=== PATIENT | female | born 1940 | race African-American/Black ===

== ENCOUNTER 2017-02-08 06:19 | Day surgery (SDC) | payer OTHER, BC ==
[2017-02-04 10:59] VITALS: BMI 31.0
[~2017-02-08 06:19] MED LIST: CYCLOPENTOLATE HCL 1% OPHTH SOLN 2 ML BOTTLE OP SCH; MOXIFLOXACIN HCL 0.5% OPHTHALMIC 3 ML BOTTLE OP SCH; PHENYLEPHRINE 2.5% OPHTH SOLN 15 ML BOTTLE OP SCH; TROPICAMIDE 1% OPHTH SOLN 15 ML BOTTLE OP SCH
[2017-02-08] MEDS ORDERED: TOBRAMYCIN/DEXAMETHASONE OPHTH. OINTMENT 1 TUBE ONE (07:31)
[2017-02-08] MEDS ORDERED: EPINEPHrine/PF 1 MG/1 ML (1:1,000) AMPULE ONE (07:31)
[2017-02-08] MEDS ORDERED: BUPIVACAINE HCL/PF 0.75% 10 ML VIAL ONE (07:32)
[2017-02-08] MEDS ORDERED: LIDOCAINE HCL/PF 1% SDV 5ML VIAL ONE (07:32)
[2017-02-08] MEDS ORDERED: LIDOCAINE HCL/PF 2% SDV 5ML VIAL ONE (07:32)
[2017-02-08] MEDS ORDERED: POVIDONE-IODINE 5% OPHTHALMIC PREP 30 ML SOLUTION ONE (07:33)
== END 2017-02-08 06:45 | disposition home or self-care (01) ==
LOC: JASU-SURG 06:19
PROVIDERS: ATTEND Ophthalmology
PROC: 085K3ZZ Destruction of Left Lens, Percutaneous Approach (ICD-10-PCS; principal; 2017-02-08)
DX: H26.9 Unspecified cataract (principal); Z53.8 Procedure and treatment not carried out for other reasons
CPT/HCPCS: 36415; 70450-TC; 80053; 85025; 85651; 86140; 99282-25

== ENCOUNTER 2017-02-22 06:07 | Day surgery (SDC) | payer OTHER, BC ==
[2017-02-18 14:07] VITALS: BMI 31.0
[2017-02-22 06:34] VITALS: TEMP 98
[2017-02-22] MEDS: MOXIFLOXACIN HCL 0.5% OPHTHALMIC 3 ML BOTTLE OP SCH ×3 (06:45→07:04)
[2017-02-22] MEDS: CYCLOPENTOLATE HCL 1% OPHTH SOLN 2 ML BOTTLE OP SCH ×3 (06:45→07:04)
[2017-02-22] MEDS: PHENYLEPHRINE 2.5% OPHTH SOLN 15 ML BOTTLE OP SCH ×3 (06:45→07:05)
[2017-02-22] MEDS: TROPICAMIDE 1% OPHTH SOLN 15 ML BOTTLE OP SCH ×3 (06:45→07:05)
[2017-02-22] MEDS ORDERED: EPINEPHrine/PF 1 MG/1 ML (1:1,000) AMPULE ONE (07:20)
[2017-02-22] MEDS ORDERED: BUPIVACAINE HCL/PF 0.75% 10 ML VIAL ONE (07:21)
[2017-02-22] MEDS ORDERED: LIDOCAINE HCL/PF 1% SDV 5ML VIAL ONE (07:21)
[2017-02-22] MEDS ORDERED: TETRACAINE 0.5% OPHTH SOLN 2 ML BOTTLE ONE (07:21)
[2017-02-22] MEDS ORDERED: LIDOCAINE HCL/PF 2% SDV 5ML VIAL ONE (07:21)
[2017-02-22] MEDS ORDERED: POVIDONE-IODINE 5% OPHTHALMIC PREP 30 ML SOLUTION ONE (07:21)
[2017-02-22] MEDS ORDERED: MIDAZOLAM HCL 2 MG/2 ML SINGLE DOSE VIAL ONE (07:46)
[2017-02-22] MEDS ORDERED: SUCCINYLCHOLINE CHLORIDE 200 MG/10 ML VIAL ONE (07:46)
[2017-02-22] MEDS ORDERED: PROPOFOL 20 ML ONE (07:50)
--- NOTE | 2017-02-22 07:59 | HP ---
History & Physical Update - History History: No Change - Physical Physical: No Change - Assessment Assessment: No Change - Plan Plan: No Change
[2017-02-22] MEDS: TOBRAMYCIN/DEXAMETHASONE OPHTH. OINTMENT 1 TUBE ONE ×2 (08:44)
[2017-02-22 11:39] VITALS: BP 137/70; PULSE 58
--- NOTE | 2017-02-23 08:42 | OP ---
DATE OF OPERATION: 02/22/2017 SURGEON: Brad Kuo MD PREOPERATIVE DIAGNOSIS: Cataract, left eye. OPERATION: Phacoemulsification and intraocular lens implantation, left eye. POSTOPERATIVE DIAGNOSIS: Cataract, left eye. ANESTHESIA: Local with intravenous sedation. COMPLICATIONS: None. BLOOD LOSS: None. SPECIMEN: None. BRIEF HISTORY: The patient is a 76-year-old woman with a past medical history of diabetes who presented with decreased vision in the left eye down to 20/70 due to 1-2+ nuclear sclerotic lens with peripheral cortical changes and punctate opacities. After the risks, benefits, and alternatives to cataract surgery were discussed with the patient, she consented to surgery for the left eye. DESCRIPTION OF PROCEDURE: The patient was brought to the operating room and administered retrobulbar block after receiving intravenous sedation. She was then prepped and draped in the usual sterile fashion. Then, an eyelid speculum was inserted in the left eye, a paracentesis was made, and the anterior chamber was inflated with nonpreserved lidocaine. This was followed by injection of Viscoat. A groove was made in the superotemporal clear cornea which was tunneled forward with a crescent blade. The anterior chamber was entered with a 2.75 keratome. The cystotome was used to make an incision at the center of the capsule, and a continuous curvilinear capsulorrhexis was created. The lens was hydrodissected until it was found to rotate freely within the capsular bag. Phacoemulsification was then used to remove the lens in its entirety. Irrigation and aspiration were used to remove residual cortical material. The anterior chamber and capsular bag were reinflated with Provisc, and a 15.5 diopter [id number] AcrySof intraocular lens was injected into the capsular bag using the [place] injector. The lens was dialed into place using the SinMetailey hook. Irrigation and aspiration were used to remove residual viscoelastic. The wound was stromally hydrated until it was found to be watertight and the eye was in an appropriate pressure. The eyelid speculum was removed from the eye, and TobraDex ointment and a patch and shield were placed over the left eye. The patient was transferred to the recovery room in stable condition and will follow up tomorrow. Mundo COHEN/[id number]
== END 2017-02-22 10:30 | disposition home or self-care (01) ==
LOC: JASU-SURG 06:07
PROVIDERS: ATTEND Ophthalmology
PROC: 08RK3JZ Replacement of Left Lens with Synthetic Substitute, Percutaneous Approach (ICD-10-PCS; principal; 2017-02-22 08:00)
DX: H25.12 Age-related nuclear cataract, left eye (principal)

== ENCOUNTER 2017-11-27 13:32 | Emergency (ER) | payer OTHER, BC ==
[2017-11-27 13:42] VITALS: BMI 29.7
--- NOTE | 2017-11-27 13:46 | PDOC ---
History of Present Illness - General Chief Complaint: Chest Pain Stated Complaint: CHEST PAIN Time Seen by Provider: 11/27/17 13:46 - History of Present Illness Initial Comments: 11/27/17 14:00 Ms. Rizvi is a 77 yo female w/ pmh of HTN, HLD, and DM who presents for evaluation of 2 day history of left sided chest pain radiating to her left shoulder. Patient reports symptoms started yesterday and she initially believed she had pulled a muscle and hoped it would get better. Symptoms continued while she was in [place] and she elected to come in. The patient denies shortness of breath, headache and dizziness. Denies fever, chills, nausea, vomit, diarrhea and constipation. Denies dysuria, frequency, urgency and hematuria. Allergies: NKDA Past History - Past Medical History Allergies/Adverse Reactions: Allergies Allergy/AdvReac Type Severity Reaction Status Date / Time No Known Allergies Allergy Verified 11/27/17 13:42 Home Medications: Ambulatory Orders Metformin HCl [Metformin HCl ER] 1,000 mg PO DAILY 08/20/13 Nadolol [Corgard] 20 mg PO DAILY 08/20/13 Quinapril HCl [Accupril -] 40 mg PO DAILY 08/20/13 Amlodipine Besylate 10 mg PO DAILY 02/04/17 Famotidine [Pepcid -] 40 mg PO DAILY 02/08/17 Pravastatin Sodium 10 mg PO DAILY 02/08/17 Aspirin [ASA -] 81 mg PO DAILY 11/27/17 Asthma: (SINUS PROBLEM) COPD: No Diabetes: Yes GI Disorders: Yes (ACID REFLUX) HTN: Yes Hypercholesterolemia: Yes - Immunization History Immunization Up to Date: Yes - Suicide/Smoking/Psychosocial Hx Smoking History: Never smoked Have you smoked in the past 12 months: No Hx Alcohol Use: No Drug/Substance Use Hx: No Substance Use Type: None Review of Systems - Review of Systems Comments:: 11/27/17 14:03 GENERAL/CONSTITUTIONAL: No fever or chills. No weakness. HEAD, EYES, EARS, NOSE AND THROAT: No change in vision. No ear pain or discharge. No sore throat. CARDIOVASCULAR: +Chest pain as described. No shortness of breath RESPIRATORY: No cough, wheezing, or hemoptysis. GASTROINTESTINAL: No nausea, vomiting, diarrhea or constipation. GENITOURINARY: No dysuria, frequency, or change in urination. MUSCULOSKELETAL: No joint or muscle swelling or pain. No neck or back pain. SKIN: No rash NEUROLOGIC: No headache, vertigo, loss of consciousness, or change in strength/ sensation. ENDOCRINE: No increased thirst. No abnormal weight change HEMATOLOGIC/LYMPHATIC: No anemia, easy bleeding, or history of blood clots. ALLERGIC/IMMUNOLOGIC: No hives or skin allergy. *Physical Exam - Vital Signs Last Vital Signs Temp Pulse Resp BP Pulse Ox 98.6 F 58 L 18 179/72 99 11/27/17 13:37 11/27/17 13:37 11/27/17 13:37 11/27/17 13:37 11/27/17 13:37 - Physical Exam Comments: 11/27/17 14:03 GENERAL: Awake, alert, and fully oriented, in no acute distress HEAD: No signs of trauma, normocephalic, atraumatic EYES: PERRLA, EOMI, sclera anicteric, conjunctiva clear ENT: Auricles normal inspection, hearing grossly normal, nares patent, oropharynx clear without exudates. Moist mucosa NECK: Normal ROM, supple, no lymphadenopathy, JVD, or masses LUNGS: +Reproducible chest pain w/ palpation. No distress, speaks full sentences , clear to auscultation bilaterally HEART: Regular rate and rhythm, normal S1 and S2, no murmurs, rubs or gallops, peripheral pulses normal and equal bilaterally. ABDOMEN: Soft, nontender, normoactive bowel sounds. No guarding, no rebound. No masses EXTREMITIES: Normal inspection, Normal range of motion, no edema. No clubbing or cyanosis. NEUROLOGICAL: Cranial nerves II through XII grossly intact. Normal speech, normal gait, no focal sensorimotor deficits SKIN: Warm, Dry, normal turgor, no rashes or lesions noted. ED Treatment Course - LABORATORY CBC & Chemistry Diagram: 11/27/17 14:09 11/27/17 14:09 Medical Decision Making - Medical Decision Making 11/27/17 18:05 Ms. Rizvi is a 77 yo female w/ pmh as described who presents for evaluation of reproducible chest pain. Patient reporting improvement of chest pain w/ toradol. Labs grossly wnl w/ 2 normal troponins as below. EKG mildly patricia, regular rhythm, normal access, normal interval, mild t wave flattening in V5/ V6. Grossly unconcerning EKG. Discharging patient w/ instructions to f/u w/ PCP for further evaluation. No concern for acute process at this time. Laboratory Results - last 24 hr 11/27/17 11/27/17 11/27/17 14:09 14:09 14:09 WBC 7.4 RBC 4.59 Hgb 13.1 Hct 39.1 MCV 85.2 MCH 28.6 MCHC 33.6 RDW 14.6 Plt Count 171 MPV 9.3 Absolute Neuts (auto) 4.2 Neutrophils % 56.8 Lymphocytes % 33.0 Monocytes % 7.6 Eosinophils % 2.1 Basophils % 0.5 Nucleated RBC % 0 Sodium 147 H Potassium 3.8 Chloride 109 H Carbon Dioxide 26 Anion Gap 12 BUN 20 H Creatinine 0.9 Creat Clearance w eGFR > 60 Random Glucose 93 Calcium 9.2 Total Bilirubin 0.7 AST 29 ALT 37 Alkaline Phosphatase 67 Creatine Kinase Troponin I Total Protein 8.0 Albumin 3.8 Urine Color Ltyellow Urine Appearance Clear Urine pH 6.0 Ur Specific [place] 1.011 Urine Protein Negative Urine Glucose (UA) Negative Urine Ketones Negative Urine Blood Negative Urine Nitrite Negative Urine Bilirubin Negative Urine Urobilinogen Negative Ur Leukocyte Esterase Negative 11/27/17 11/27/17 14:10 16:55 WBC RBC Hgb Hct MCV MCH MCHC RDW Plt Count MPV Absolute Neuts (auto) Neutrophils % Lymphocytes % Monocytes % Eosinophils % Basophils % Nucleated RBC % Sodium Potassium Chloride Carbon Dioxide Anion Gap BUN Creatinine Creat Clearance w eGFR Random Glucose Calcium Total Bilirubin AST ALT Alkaline Phosphatase Creatine Kinase 147 Troponin I < 0.02 < 0.02 Total Protein Albumin Urine Color Urine Appearance Urine pH Ur Specific Mayer Urine Protein Urine Glucose (UA) Urine Ketones Urine Blood Urine Nitrite Urine Bilirubin Urine Urobilinogen Ur Leukocyte Esterase *DC/Admit/Observation/Transfer Diagnosis at time of Disposition: Chest pain Qualifiers: Chest pain type: unspecified Qualified Code(s): R07.9 - Chest pain, unspecified - Discharge Dispostion Disposition: HOME - Referrals Referrals: Guillermo Zee MD [Primary Care Provider] - - Patient Instructions Printed Discharge Instructions: DI for Atypical Chest Pain Additional Instructions: You were evaluated today in the ER for your chest pain. No concerning findings were found at this time. Please follow-up with primary care provider in 1-2 days for further evaluation. You may take over the counter motrin or tylenol for your pain. Return to ER if any fever, chills, increased chest pain, or other concerning symptoms. - Post Discharge Activity
[2017-11-27] MEDS ORDERED: ASPIRIN 81 MG CHEWABLE TABLETS PO ONE (14:00)
--- NOTE | 2017-11-27 14:18 | PDOC ---
Attending Attestation - Resident Resident Name: Darrell Santiago - ED Attending Attestation I have performed the following: I have examined & evaluated the patient, The case was reviewed & discussed with the resident, I agree w/resident's findings & plan, Exceptions are as noted - HPI HPI: 11/27/17 14:24 77-year-old female with past medical history of hypertension, diabetes, hyperlipidemia presents with chest pain. Patient reported approximately 1 day ago she reported reproducible left sided chest pain worse with movements. Denies shortness of breath or dyspnea on exertion. States the pain made her feel generally weak stated weight up to her left shoulder. She thought that this may have been muscle skeletal and try to avoid come to the doctor's. However, at the insistence of her family members came to the ER. She does not recall her last stress test or echocardiogram. - Physicial Exam PE: 11/27/17 14:27 GENERAL: Awake, alert, and fully oriented, in no acute distress HEAD: No signs of trauma EYES: EOMI, sclera anicteric, conjunctiva clear ENT: Auricles normal inspection, hearing grossly normal, nares patent, Moist mucosa NECK: Normal ROM, supple LUNGS: Breath sounds equal, clear to auscultation bilaterally. No wheezes, and no crackles HEART: Regular rate and rhythm, normal S1 and S2, no murmurs, rubs or gallops. Reproducible left sided chest pain and with left arm movement. ABDOMEN: Soft, nontender,. No guarding, no rebound. No masses EXTREMITIES: Normal range of motion, no edema. No clubbing or cyanosis. No cords, erythema, or tenderness NEUROLOGICAL: Cranial nerves II through XII grossly intact. Normal speech, SKIN: Warm, Dry, normal turgor, no rashes or lesions noted. - Medical Decision Making 11/27/17 14:27 Vital Signs Temp Pulse Resp BP Pulse Ox 98.6 F 58 L 18 179/72 99 11/27/17 13:37 11/27/17 13:37 11/27/17 13:37 11/27/17 13:37 11/27/17 13:37 The patient's chest pain is atypical and I suspect is likely muscle skeletal. However, given her risk factors, we'll obtain 2 sets of troponins. If the troponins are negative the patient reports feeling better with NSAIDs, the patient be discharged home with primary care physician follow-up. 11/27/17 15:01 Chest xray reviewed. No acute findings. 11/27/17 15:23 CBC, BMP 11/27/17 14:09 11/27/17 14:09 CMP Sodium 147 mmol/L (136-145) H 11/27/17 14:09 Potassium 3.8 mmol/L (3.5-5.1) 11/27/17 14:09 Chloride 109 mmol/L (98-107) H 11/27/17 14:09 Carbon Dioxide 26 mmol/L (21-32) 11/27/17 14:09 Anion Gap 12 MMOL/L (8-16) 11/27/17 14:09 BUN 20 mg/dL (7-18) H 11/27/17 14:09 Creatinine 0.9 mg/dL (0.55-1.3) 11/27/17 14:09 Creat Clearance w eGFR > 60 (>60) 11/27/17 14:09 Random Glucose 93 mg/dL (74-106) 11/27/17 14:09 Calcium 9.2 mg/dL (8.5-10.1) 11/27/17 14:09 Total Bilirubin 0.7 mg/dL (0.2-1.0) 11/27/17 14:09 AST 29 U/L (15-37) 11/27/17 14:09 ALT 37 U/L (13-61) 11/27/17 14:09 Alkaline Phosphatase 67 U/L (45-117) 11/27/17 14:09 Creatine Kinase 147 IU/L (26-192) 11/27/17 14:10 Troponin I < 0.02 ng/ml (0.00-0.05) 11/27/17 14:10 Total Protein 8.0 g/dl (6.4-8.2) 11/27/17 14:09 Albumin 3.8 g/dl (3.4-5.0) 11/27/17 14:09 Urine Test Results Urine Color Ltyellow 11/27/17 14:09 Urine Appearance Clear 11/27/17 14:09 Urine pH 6.0 (5.0-8.0) 11/27/17 14:09 Ur Specific [place] 1.011 (1.001-1.035) 11/27/17 14:09 Urine Protein Negative (NEGATIVE) 11/27/17 14:09 Urine Glucose (UA) Negative (NEGATIVE) 11/27/17 14:09 Urine Ketones Negative (NEGATIVE) 11/27/17 14:09 Urine Blood Negative (NEGATIVE) 11/27/17 14:09 Urine Nitrite Negative (NEGATIVE) 11/27/17 14:09 Urine Bilirubin Negative (<2.0 mg/dL) 11/27/17 14:09 Ur Leukocyte Esterase Negative (NEGATIVE) 11/27/17 14:09 Initial trop negative. Will obtain a 2nd trop. If the 2nd trop is negative, the patient can go home if she feels better. Heart Score/ECG Review #1 ECG reviewed & interpreted by me at: 13:55 11/27/17 14:17 NSR 50, +LVH, T wave flat V5-V6, no std/del, QTC 377 msec
[2017-11-27 14:22] LABS: BASO % 0.5 % (0-2.0); EOS % 2.1 % (0-4.5); HEMATOCRIT 39.1 % (32.4-45.2); HEMOGLOBIN 13.1 GM/dL (10.7-15.3); MCH 28.6 pg (25.7-33.7); MCHC 33.6 g/dl (32.0-36.0); MEAN CELL VOLUME 85.2 fl (80-96); MEAN PLT VOLUME 9.3 fl (7.5-11.1); MONO % 7.6 % (3.8-10.2); NEUT % 56.8 % (42.8-82.8); PLATELET COUNT 171 K/MM3 (134-434); RBC 4.59 M/mm3 (3.60-5.2); RDW 14.6 % (11.6-15.6); WHITE BLOOD COUNT 7.4 K/mm3 (4.0-10.0)
[2017-11-27] MEDS ORDERED: KETOROLAC TROMETHAMINE 30 MG/1 ML VIAL ONE (14:24)
[2017-11-27 14:25] LABS: URINE APPEARANCE CLEAR; URINE BILIRUBIN NEGATIVE (<2.0 mg/dL); URINE COLOR LTYELLOW; URINE GLUCOSE (UA) NEGATIVE (NEGATIVE); URINE KETONE NEGATIVE (NEGATIVE); URINE LEUK ESTERASE NEGATIVE (NEGATIVE); URINE NITRITE NEGATIVE (NEGATIVE); URINE PROTEIN NEGATIVE (NEGATIVE); URINE UROBILINOGEN NEGATIVE mg/dL (0.2-1.0)
[2017-11-27] MEDS ORDERED: KETOROLAC TROMETHAMINE 30 MG/1 ML VIAL IVPUSH ONE (14:26)
[2017-11-27] MEDS ORDERED: SODIUM CHLORIDE 1,000 ML IV STA (14:26)
[2017-11-27] MEDS ORDERED: ASPIRIN 81 MG CHEWABLE TABLETS ONE (14:45)
[2017-11-27 15:02] LABS: ALBUMIN 3.8 g/dl (3.4-5.0); ANION GAP 12 MMOL/L (8-16); BLOOD UREA NITROGEN 20 mg/dL (7-18); CALCIUM 9.2 mg/dL (8.5-10.1); CHLORIDE 109 mmol/L (98-107); CO2 26 mmol/L (21-32); GLUCOSE,RANDOM 93 mg/dL (74-106); POTASSIUM 3.8 mmol/L (3.5-5.1); SODIUM 147 mmol/L (136-145)
[2017-11-27 15:07] LABS: ALK PHOS 67 U/L (45-117); BILIRUBIN,TOTAL 0.7 mg/dL (0.2-1.0); CREATININE 0.9 mg/dL (0.55-1.3); SGOT/AST 29 U/L (15-37); SGPT/ALT 37 U/L (13-61)
[2017-11-27] MEDS ORDERED: amLODIPine BESYLATE 10 MG TABLET (FP) PO ONE (16:10)
[2017-11-27] MEDS ORDERED: QUINAPRIL HCL 40 MG TABLET (FP) PO ONE (16:10)
[2017-11-27] MEDS ORDERED: amLODIPine BESYLATE 5 MG TABLET (FP) ONE (16:13)
[2017-11-27] MEDS ORDERED: QUINAPRIL HCL 10 MG TABLET (FP) ONE (16:14)
[2017-11-27 17:02] VITALS: PULSE 59
[2017-11-27 18:27] VITALS: BP 155/75; TEMP 97.9
--- NOTE | 2017-11-27 21:09 | EKG ---
Test Reason : Blood Pressure : / mmHG Vent. Rate : 050 BPM Atrial Rate : 050 BPM P-R Int : 182 ms QRS Dur : 096 ms QT Int : 414 ms P-R-T Axes : 040 -02 045 degrees QTc Int : 377 ms SINUS BRADYCARDIA WITH SINUS ARRHYTHMIA VOLTAGE CRITERIA FOR LEFT VENTRICULAR HYPERTROPHY NONSPECIFIC T WAVE ABNORMALITY ABNORMAL ECG WHEN COMPARED WITH ECG OF 20-AUG-2013 22:45, NO SIGNIFICANT CHANGE WAS FOUND Confirmed by PIPER MARTINEZ MD ([id number]) on 11/27/2017 9:09:18 PM Referred By: Confirmed By:PIPER MARTINEZ MD
[2017-11-28] MEDS ORDERED: NADOLOL 20 MG TABLET (FP) PO ONE (16:11)
== END 2017-11-27 18:27 | disposition home or self-care (01) ==
LOC: JER 13:32
PROC: 3E0333Z Introduction of Anti-inflammatory into Peripheral Vein, Percutaneous Approach (ICD-10-PCS; principal; 2017-11-27)
PROC: 3E033GC Introduction of Other Therapeutic Substance into Peripheral Vein, Percutaneous Approach (ICD-10-PCS; 2017-11-27)
DX: R07.9 Chest pain, unspecified (principal)
CPT/HCPCS: 36415; 71045-TC-FY; 80053; 81003; 82550; 84484; 85025; 87086; 93005; 93010; 96361; 96374; 99285-25; J7030

== ENCOUNTER 2019-06-11 19:33 | Emergency (ER) | payer OTHER, BC ==
[2019-06-11] MEDS ORDERED: ACETAMINOPHEN 325 MG TABLET (FP) PO ONE (20:13)
--- NOTE | 2019-06-11 20:14 | PDOC ---
Rapid Medical Evaluation Chief Complaint: Cold Symptoms Time Seen by Provider: 06/11/19 20:05 Medical Evaluation: Allergies Allergy/AdvReac Type Severity Reaction Status Date / Time No Known Allergies Allergy Verified 11/27/17 13:42 06/11/19 20:05 79 year old c/o hypertension, diabetes, hypercholesteremia, seasonal allergies c/o cough worsening for the last 10 days. patient was treated for a sinus infection. s/p z-pack. patient is c/o headache PE: patient alert ox3. breath sounds clear + nasal congestion A; cough; suspected COvid P: chest xray tylenol 06/12/19 05:01 Discharge Disposition - Diagnosis Suspected 2019 novel coronavirus infection, Cough - Discharge Dispostion Disposition: HOME - Prescriptions Prescriptions: Fluticasone Prop 0.05% Nasal [Flonase -] 1 - 2 spray NS BID #1 spray.pump Benzonatate [Tessalon Pearls -] 100 mg PO TID PRN #21 capsule PRN Reason: Cough - Referrals - Patient Instructions Printed Discharge Instructions: [facility]-Coronavirus Instructions - Post Discharge Activity
[2019-06-11 20:16] VITALS: BP 168/63; PULSE 66; TEMP 97.1
== END 2019-06-11 20:43 | disposition home or self-care (01) ==
LOC: JER 19:33
DX: R05 Cough (principal)
CPT/HCPCS: 71045-TC-FY; 99284-25

== ENCOUNTER 2020-12-05 15:02 | Emergency (ER) | payer OTHER, BC ==
[2020-12-05 15:24] VITALS: BP 175/75; PULSE 46; TEMP 98.5; BMI 24.7
[2020-12-05] MEDS ORDERED: DIPHTH,PERTUSS(ACELL),TET 0.5 ML DISP.SYRIN IM ONE ×2 (15:48→15:49)
== END 2020-12-05 16:46 | disposition home or self-care (01) ==
LOC: JERFT 15:02
PROC: 0HQGXZZ Repair Left Hand Skin, External Approach (ICD-10-PCS; principal; 2020-12-05)
PROC: 3E0234Z Introduction of Serum, Toxoid and Vaccine into Muscle, Percutaneous Approach (ICD-10-PCS; 2020-12-05)
DX: S61.012A Laceration without foreign body of left thumb without damage to nail, initial encounter (principal); W26.0XXA Contact with knife, initial encounter; Y93.G3 Activity, cooking and baking
CPT/HCPCS: 12001-25; 90471; 90715; 99284-25

== ENCOUNTER 2022-01-11 14:55 | Emergency (ER) | payer OTHER, BC ==
[2022-01-11 15:04] VITALS: TEMP 97.8; BMI 22.8
[2022-01-11 18:23] LABS: URINE APPEARANCE CLEAR; URINE BILIRUBIN NEGATIVE (NEGATIVE); URINE COLOR YELLOW; URINE GLUCOSE (UA) NEGATIVE (NEGATIVE); URINE KETONE NEGATIVE (NEGATIVE); URINE LEUK ESTERASE NEGATIVE (NEGATIVE); URINE NITRITE NEGATIVE (NEGATIVE); URINE PROTEIN NEGATIVE (NEGATIVE)
[2022-01-11 19:11] LABS: BASO % 0.6 % (0-2.0); EOS % 2.2 % (0-4.5); HEMATOCRIT 35.2 % (32.4-45.2); HEMOGLOBIN 11.8 GM/dL (10.7-15.3); LYMPH % 30.5 % (8-40); MCH 29.5 pg (25.7-33.7); MCHC 33.6 g/dl (32.0-36.0); MEAN CELL VOLUME 87.8 fl (80-96); MEAN PLT VOLUME 9.7 fl (7.5-11.1); MONO % 7.5 % (3.8-10.2); NEUT % 59.2 % (42.8-82.8); PLATELET COUNT 150 10^3/uL (134-434); RBC 4.01 M/mm3 (3.60-5.2); WHITE BLOOD COUNT 6.2 K/mm3 (4.0-10.0)
[2022-01-11 19:28] LABS: CALCIUM 9.8 mg/dL (8.5-10.1)
[2022-01-11 19:29] LABS: ALBUMIN 3.6 g/dl (3.4-5.0); BLOOD UREA NITROGEN 22.6 mg/dL (7-18)
[2022-01-11 19:32] LABS: CREATININE 0.8 mg/dL (0.55-1.3)
[2022-01-11 19:33] LABS: BILIRUBIN,TOTAL 0.5 mg/dL (0.2-1); TOT PROT 7.4 g/dl (6.4-8.2)
[2022-01-11 23:25] VITALS: BP 165/72; PULSE 71; RESP 20
== END 2022-01-11 23:25 | disposition home or self-care (01) ==
LOC: JER 14:55
DX: R10.9 Unspecified abdominal pain (principal)
CPT/HCPCS: 36415; 74177-TC; 80053; 81003; 85025; 87086; 99285-25; Q9967

== ENCOUNTER 2022-05-20 17:10 | Emergency (ER) | payer OTHER, BC ==
[2022-05-20 17:22] VITALS: BP 136/67; PULSE 70; RESP 18; TEMP 98.2; BMI 24.3
[2022-05-20] MEDS ORDERED: SODIUM CHLORIDE 0.9% 500 ML INFUS.BAG IV ONE (19:43)
[2022-05-20] MEDS ORDERED: LIDOCAINE 5% TOPICAL PATCH TP ONE (19:51)
[2022-05-20] MEDS ORDERED: ACETAMINOPHEN 1000 MG/100 ML BAG IVPB ONE (19:51)
[2022-05-20] MEDS ORDERED: METHOCARBAMOL 500 MG TABLET PO ONE (19:58)
[2022-05-20] MEDS ORDERED: ACETAMINOPHEN INJECTION 100 ML IVPB ONE (20:41)
[2022-05-20] MEDS ORDERED: METHOCARBAMOL 500 MG TABLET ONE ×2 (20:41→21:29)
[2022-05-20] MEDS ORDERED: LIDOCAINE 5% TOPICAL PATCH ONE (20:41)
[2022-05-20 21:10] LABS: BASO % 0.3 % (0-2.0); EOS % 0.4 % (0-4.5); HEMATOCRIT 37.2 % (32.4-45.2); HEMOGLOBIN 12.4 GM/dL (10.7-15.3); LYMPH % 15.5 % (8-40); MCH 27.6 pg (25.7-33.7); MCHC 33.4 g/dl (32.0-36.0); MEAN CELL VOLUME 82.6 fl (80-96); MEAN PLT VOLUME 7.8 fl (7.5-11.1); NEUT % 74.8 % (42.8-82.8); PLATELET COUNT 228 10^3/uL (134-434); RBC 4.51 M/mm3 (3.60-5.2); WHITE BLOOD COUNT 9.2 K/mm3 (4.0-10.0)
[2022-05-20 21:43] LABS: MAGNESIUM 2.2 mg/dL (1.8-2.4)
[2022-05-20 21:45] LABS: BLOOD UREA NITROGEN 24.4 mg/dL (7-18); CALCIUM 9.6 mg/dL (8.5-10.1)
[2022-05-20 21:46] LABS: PHOSPHOROUS 3.6 mg/dL (2.5-4.9)
[2022-05-20 21:49] LABS: CREATININE 1.1 mg/dL (0.55-1.3)
[2022-05-20 21:50] LABS: BILIRUBIN,TOTAL 0.3 mg/dL (0.2-1); TOT PROT 7.6 g/dl (6.4-8.2)
[2022-05-20] MEDS ORDERED: LIDOCAINE PATCH REMOVAL MC SCH (22:00)
== END 2022-05-20 23:40 | disposition home or self-care (01) ==
LOC: JER 17:10
PROC: 3E033NZ Introduction of Analgesics, Hypnotics, Sedatives into Peripheral Vein, Percutaneous Approach (ICD-10-PCS; principal; 2022-05-20)
DX: R53.1 Weakness (principal); M54.2 Cervicalgia; Z20.822 Contact with and (suspected) exposure to COVID-19
CPT/HCPCS: 0241U-QW; 36415; 71045-TC-FY; 72125-TC; 80053; 83605; 83735; 84100; 84484; 85025; 93005; 93010; 99285-25